=== PATIENT | male | born 1975 | race Hispanic/Latino ===

== ENCOUNTER 2017-08-14 16:39 | Emergency (ER) | payer OTHER, SELFPAY ==
[2017-08-14] MEDS ORDERED: HYDROCODONE/APAP 5/325 MG TAB ONE (17:16)
--- NOTE | 2017-08-14 17:49 | RAD REPORT ---
EXAM DESCRIPTION: RAD - Ankle Left 3 View -08/14/2017 5:41 pm CLINICAL HISTORY: Left ankle pain status post injury FINDINGS: No fracture or dislocation is seen. A radiopaque foreign body is not seen
--- NOTE | 2017-08-14 17:50 | EDPHYS ---
Physician Documentation [facility] Name: Colby Reyes Age: 41 yrs Sex: Male : 1975 Arrival Date: 08/14/2017 Time: 16:43 Bed 8 Private MD: None, None ED Physician Marquis Guthrie HPI: 08/14 17:10 This 41 yrs old Male presents to ER via Ambulatory with complaints of Stung by pm1 Sting ray. 17:10 The patient presents with pain, that is acute. The complaints affect the left foot. pm1 Context: [place] the patient can fully bear weight, the patient is able to ambulate. Onset: The symptoms/episode began/occurred yesterday. Modifying factors: The symptoms are alleviated by nothing, the symptoms are aggravated by nothing. Associated signs and symptoms: Pertinent positives: swelling, Pertinent negatives: calf tenderness, fever, numbness, tingling. Severity of symptoms: in the emergency department the symptoms are unchanged. The patient has not experienced similar symptoms in the past. The patient has not recently seen a physician. Patient did not see what possibly stung him. He was walking in the water yesterday and believes he was stung by a sting ray on the left lateral foot. he soaked his foot in water last night and reports some redness and swelling to wound. Patient reports tetanus immunization is current, less than 5 years old. . Historical: - Allergies: 17:02 No Known Allergies; mg2 - Home Meds: 17:02 None [Active]; mg2 - PMHx: 17:02 None; mg2 - PSHx: 17:02 None; mg2 - Immunization history:: Flu vaccine is not up to date. - Social history:: Smoking status: Patient uses tobacco products, smokes one-half pack cigarettes per day, Patient uses street drugs, Methamphetamine (Meth) occasionaly. - Ebola Screening: : No symptoms or risks identified at this time. ROS: 17:10 MS/extremity: Positive for puncture, of the lateral side of left foot below lateral pm1 malleolus , Negative for decreased range of motion, deformity. 17:10 Constitutional: Negative for fever, chills, and weight loss, Eyes: Negative for injury, pain, redness, and discharge, ENT: Negative for injury, pain, and discharge, Neck: Negative for injury, pain, and swelling, Cardiovascular: Negative for chest pain, palpitations, and edema, Respiratory: Negative for shortness of breath, cough, wheezing, and pleuritic chest pain, Abdomen/GI: Negative for abdominal pain, nausea, vomiting, diarrhea, and constipation, Back: Negative for injury and pain, Neuro: Negative for headache, weakness, numbness, tingling, and seizure. 17:10 Skin: Positive for laceration as noted on MS exam. Exam: 17:10 Constitutional: This is a well developed, well nourished patient who is awake, alert, pm1 and in no acute distress. Head/Face: Normocephalic, atraumatic. Eyes: Pupils equal round and reactive to light, extra-ocular motions intact. Lids and lashes normal. Conjunctiva and sclera are non-icteric and not injected. Cornea within normal limits. Periorbital areas with no swelling, redness, or edema. ENT: Nares patent. No nasal discharge, no septal abnormalities noted. Tympanic membranes are normal and external auditory canals are clear. Oropharynx with no redness, swelling, or masses, exudates, or evidence of obstruction, uvula midline. Mucous membranes moist. Neck: Trachea midline, no thyromegaly or masses palpated, and no cervical lymphadenopathy. Supple, full range of motion without nuchal rigidity, or vertebral point tenderness. No Meningismus. Chest/axilla: Normal chest wall appearance and motion. Nontender with no deformity. No lesions are appreciated. Cardiovascular: Regular rate and rhythm with a normal S1 and S2. No gallops, murmurs, or rubs. Normal PMI, no JVD. No pulse deficits. Respiratory: Lungs have equal breath sounds bilaterally, clear to auscultation and percussion. No rales, rhonchi or wheezes noted. No increased work of breathing, no retractions or nasal flaring. Abdomen/GI: Soft, non-tender, with normal bowel sounds. No distension or tympany. No guarding or rebound. No evidence of tenderness throughout. Back: No spinal tenderness. No costovertebral tenderness. Full range of motion. 17:10 Skin: Appearance: normal except for affected area, cellulitis, is not appreciated, mild swelling present surrounding wound. No erythema, injury, puncture(s), that are superficial, of the lateral aspect of left foot below malleolus , 0.5 cm length. Vital Signs: 17:03 BP 124 / 77; Pulse 98; Resp 18; Temp 98.7; Pulse Ox 100% on R/A; Weight 86.18 kg; mg2 Height 5 ft. 8 in. (172.72 cm); Pain 0/10; 17:03 Body Mass Index 28.89 (86.18 kg, 172.72 cm) mg2 MDM: 17:04 Patient medically screened. pm1 17:46 Data reviewed: vital signs. Data interpreted: Pulse oximetry: on room air is 100 %. pm1 Interpretation: normal. Counseling: I had a detailed discussion with the patient and/or guardian regarding: the historical points, exam findings, and any diagnostic results supporting the discharge/admit diagnosis, radiology results, the need for outpatient follow up, to return to the emergency department if symptoms worsen or persist or if there are any questions or concerns that arise at home. 17:50 ED course: Superficial puncture wound. No fever or erythema present. Will discharge pm1 home with doxycycline . 17:50 Special discussion: I discussed in detail with the patient the higher chance of wound pm1 infection based on his presenting history. 08/14 17:09 Order name: Ankle Left 3 View XRAY; Complete Time: 17:50 pm1 Administered Medications: 17:15 Drug: [place] 5 mg-325 mg 1 tabs Route: PO; mg2 18:11 Follow up: Response: No adverse reaction iw Disposition: 08/14/17 17:50 Discharged to Home. Impression: Puncture wound without foreign body, left foot. - Condition is Stable. - Discharge Instructions: Puncture Wound. - Prescriptions for Doxycycline Hyclate 100 mg Oral Tablet - take 1 tablet by ORAL route every 12 hours; 20 tablet. Tylenol- Codeine #3 300-30 mg Oral Tablet - take 2 tablets by ORAL route every 6 hours As needed; 20 tablet. - Medication Reconciliation Form, Thank You Letter, Antibiotic Education, Prescription Opioid Use form. - Follow up: Emergency Department; When: As needed; Reason: Worsening of condition. Follow up: Private Physician; When: 2 - 3 days; Reason: Recheck today's complaints, Continuance of care, Re-evaluation by your physician. - Problem is new. - Symptoms have improved. Addendum: 08/16/2017 09:22 Co-signature as Attending Physician, Marquis Guthrie MD I agree with the assessment and c santacruz plan of care. Signatures: Dispatcher [employer] EDPA Marquis Guthrie MD MD cha Williams, Irene, RN RN iw Pawel Batista NP GEOLOGIST PETROLEUM pm1 Lucian Smith, RN RN mg2 Corrections: (The following items were deleted from the chart) 08/14 18:11 17:50 08/14/2017 17:50 Discharged to Home. Impression: Puncture wound without foreign iw body, left foot. Condition is Stable. Forms are Medication Reconciliation Form, Thank You Letter, Antibiotic Education, Prescription Opioid Use. Follow up: Emergency Department; When: As needed; Reason: Worsening of condition. Follow up: Private Physician; When: 2 - 3 days; Reason: Recheck today's complaints, Continuance of care, Re-evaluation by your physician. Problem is new. Symptoms have improved. pm1
--- NOTE | 2017-08-14 17:50 | ER ---
Nurse's Notes [facility] Name: Colby Reyes Age: 41 yrs Sex: Male : 1975 Arrival Date: 08/14/2017 Time: 16:43 Bed 8 Private MD: None, None Diagnosis: Puncture wound without foreign body, left foot Presentation: 08/14 17:00 Presenting complaint: Patient states: he was stung by a stingray last night \T\ 11pm. he mg2 soaked his left foot on hot water and he was relieved. Now, he observed that his left ankle is red and a bit swollen. Transition of care: patient was not received from another setting of care. Onset of symptoms was August 13, 2017 at 23:00. Risk Assessment: Do you want to hurt yourself or someone else? Patient reports no desire to harm self or others. Initial Sepsis Screen: Does the patient meet any 2 criteria? No. Patient's initial sepsis screen is negative. Does the patient have a suspected source of infection? No. Patient's initial sepsis screen is negative. Care prior to arrival: None. 17:00 Method Of Arrival: Ambulatory mg2 17:00 Acuity: ZAIDA 4 mg2 Historical: - Allergies: 17:02 No Known Allergies; mg2 - Home Meds: 17:02 None [Active]; mg2 - PMHx: 17:02 None; mg2 - PSHx: 17:02 None; mg2 - Immunization history:: Flu vaccine is not up to date. - Social history:: Smoking status: Patient uses tobacco products, smokes one-half pack cigarettes per day, Patient uses street drugs, Methamphetamine (Meth) occasionaly. - Ebola Screening: : No symptoms or risks identified at this time. Screenin:04 Abuse screen: Denies threats or abuse. Denies injuries from another. Nutritional mg2 screening: No deficits noted. Tuberculosis screening: No symptoms or risk factors identified. Fall Risk None identified. Assessment: 17:04 General: Appears in no apparent distress. comfortable, Behavior is calm, cooperative. mg2 Pain: Denies pain. Neuro: Level of Consciousness is awake, alert, obeys commands, Oriented to person, place, time, situation. Cardiovascular: Capillary refill < 3 seconds Patient's skin is warm and dry. Respiratory: Airway is patent Respiratory effort is even, unlabored, Respiratory pattern is regular, symmetrical. GI: No signs and/or symptoms were reported involving the gastrointestinal system. : No signs and/or symptoms were reported regarding the genitourinary system. EENT: No signs and/or symptoms were reported regarding the EENT system. Derm: Skin is intact, Skin is red. Musculoskeletal: No signs and/or symptoms reported regarding the musculoskeletal system. Injury Description: redness and swelling in the left ankle. 18:00 Reassessment: Patient appears in no apparent distress at this time. Patient and/or iw family updated on plan of care and expected duration. Pain level reassessed. Patient is alert, oriented x 3, equal unlabored respirations, skin warm/dry/pink. Vital Signs: 17:03 BP 124 / 77; Pulse 98; Resp 18; Temp 98.7; Pulse Ox 100% on R/A; Weight 86.18 kg; mg2 Height 5 ft. 8 in. (172.72 cm); Pain 0/10; 17:03 Body Mass Index 28.89 (86.18 kg, 172.72 cm) mg2 ED Course: 16:43 Patient arrived in ED. mr 16:43 None, None is Private Physician. mr 16:57 Lucian Smith, IVAN is Primary Nurse. mg2 17:02 Triage completed. mg2 17:03 Pawel Batista, MAGALI is PHCP. pm1 17:03 Marquis Guthrie MD is Attending Physician. pm1 17:04 Arm band placed on. mg2 17:06 Patient has correct armband on for positive identification. mg2 17:38 Ankle Left 3 View XRAY In Process Unspecified. EDMS 17:39 X-ray completed. Portable x-ray completed in exam room. Patient tolerated procedure jw2 well. 18:11 No provider procedures requiring assistance completed. Patient did not have IV access iw during this emergency room visit. Administered Medications: 17:15 Drug: [place] 5 mg-325 mg 1 tabs Route: PO; mg2 18:11 Follow up: Response: No adverse reaction iw Outcome: 17:50 Discharge ordered by . pm1 18:11 Discharged to home ambulatory. iw 18:11 Condition: good 18:11 Discharge instructions given to patient, Instructed on discharge instructions, follow up and referral plans. medication usage, Demonstrated understanding of instructions, follow-up care, medications, Prescriptions given X 2. 18:11 Patient left the ED. iw Signatures: Dispatcher [employer] Loraine Fitzpatrick Irene, RN RN iw Pawel Batista, CARPET CLEANER CARPET CLEANER pm1 Christie Schwartz jw2 Lucian Smith, RN RN mg2
[2017-08-14] MEDS ORDERED: NA CHLORIDE 0.9% 1,000 ML ONE (18:18)
[2017-08-14] MEDS ORDERED: ONDANSETRON 4 MG/2 ML VIAL ONE (18:18)
[2017-08-14] MEDS ORDERED: FENTANYL CITR 100 MCG/2 ML ONE (18:18)
[2017-08-14] MEDS ORDERED: TETANUS & DIPHTHERIA TOX,ADULT 0.5 ML VIAL ONE (18:19)
[2017-08-14] MEDS ORDERED: CEFAZOLIN/SWI 1gm 2 GM/20 ML SYR ONE (18:20)
== END 2017-08-14 18:11 | disposition home or self-care (01) ==
LOC: ER 16:39
DX: S91.332A Puncture wound without foreign body, left foot, initial encounter (principal); Y93.01 Activity, walking, marching and hiking; Y92.832 Beach as the place of occurrence of the external cause; F17.210 Nicotine dependence, cigarettes, uncomplicated
CPT/HCPCS: 90714; 99283; J0690; J2405; J3010; J7030

== ENCOUNTER 2018-03-15 19:18 | Emergency (ER) | payer BC, OTHER ==
--- NOTE | 2018-03-15 19:52 | ER ---
Nurse's Notes [facility] Name: Colby Reyes Age: 42 yrs Sex: Male : 1975 Arrival Date: 03/15/2018 Time: 19:23 Bed 14 Private MD: Diagnosis: Malaise and fatigue Presentation: 03/15 19:25 Presenting complaint: Patient states: "I took off from work early today and my job aj wants me to have a note. I have been working every day and I was just feeling tired and weak.". Transition of care: patient was not received from another setting of care. Onset of symptoms was March 15, 2018. Risk Assessment: Do you want to hurt yourself or someone else? Patient reports no desire to harm self or others. Initial Sepsis Screen: Does the patient meet any 2 criteria? No. Patient's initial sepsis screen is negative. Does the patient have a suspected source of infection? No. Patient's initial sepsis screen is negative. Care prior to arrival: None. 19:25 Method Of Arrival: Ambulatory 19:25 Acuity: ZAIDA 5 Triage Assessment: 19:26 General: Appears in no apparent distress. comfortable, Behavior is calm, cooperative, aj appropriate for age. Pain: Denies pain. Neuro: Level of Consciousness is awake, alert, obeys commands, Oriented to person, place, time, situation, Appropriate for age. Respiratory: Airway is patent Respiratory effort is even, unlabored, Respiratory pattern is regular, symmetrical. Derm: Skin is intact, is healthy with good turgor, Skin is pink, warm \\T\\ dry. normal. Historical: - Allergies: 19:26 No Known Allergies; aj - Home Meds: 19:26 None [Active]; aj - PMHx: 19:26 None; aj - PSHx: 19:26 None; aj - Immunization history:: Adult Immunizations up to date. - Social history:: Smoking status: Patient uses tobacco products, smokes one pack cigarettes per day. - Ebola Screening: : Patient negative for fever greater than or equal to 101.5 degrees Fahrenheit, and additional compatible Ebola Virus Disease symptoms Patient denies exposure to infectious person Patient denies travel to an Ebola-affected area in the 21 days before illness onset No symptoms or risks identified at this time. Screenin:32 Abuse screen: Denies threats or abuse. Nutritional screening: No deficits noted. jb4 Tuberculosis screening: No symptoms or risk factors identified. Fall Risk None identified. Assessment: 19:32 General: Appears in no apparent distress. comfortable, Behavior is calm, cooperative, jb4 appropriate for age, Pt states "I have been working every day. I have been feeling weak and overall just bad. I took a day off and I just need a doctors excuse for work.". Pain: Denies pain. Neuro: Level of Consciousness is awake, alert, obeys commands, Oriented to person, place, time, situation. Cardiovascular: Patient's skin is warm and dry. Respiratory: Airway is patent Respiratory effort is even, unlabored, Respiratory pattern is regular, symmetrical. GI: No signs and/or symptoms were reported involving the gastrointestinal system. : No signs and/or symptoms were reported regarding the genitourinary system. EENT: No signs and/or symptoms were reported regarding the EENT system. Derm: Skin is intact, Skin is pink, warm \\T\\ dry. Musculoskeletal: Circulation, motion, and sensation intact. Vital Signs: 19:26 BP 127 / 84; Pulse 79; Resp 20; Temp 97.7; Pulse Ox 99% on R/A; Weight 95.25 kg; Height aj 5 ft. 8 in. (172.72 cm); 19:26 Body Mass Index 31.93 (95.25 kg, 172.72 cm) aj ED Course: 19:23 Patient arrived in ED. es 19:26 Triage completed. aj 19:26 Arm band placed on left wrist. Patient placed in an exam room. aj 19:27 Ariel Ríos RN is Primary Nurse. jb4 19:30 Ghazal Richard FNP-C is PHCP. kb 19:30 Marquis Guthrie MD is Attending Physician. kb 19:32 Patient has correct armband on for positive identification. Bed in low position. Call jb4 light in reach. Side rails up X 1. Pulse ox on. NIBP on. 20:16 No provider procedures requiring assistance completed. Patient did not have IV access jb4 during this emergency room visit. Administered Medications: No medications were administered Outcome: 19:51 Discharge ordered by . kb 20:16 Discharged to home ambulatory. jb4 20:16 Condition: stable 20:16 Discharge instructions given to patient, Instructed on discharge instructions, follow up and referral plans. Demonstrated understanding of instructions, follow-up care. 20:17 Patient left the ED. jb4 Signatures: Ghazal Richard, DAVI-Mayur TOMLINSON-Jen Lind, RN RN Osiris Mcgee James RN RN jb4
--- NOTE | 2018-03-15 19:52 | EDPHYS ---
Physician Documentation [facility] Name: Colby Reyes Age: 42 yrs Sex: Male : 1975 Arrival Date: 03/15/2018 Time: 19:23 Bed 14 Private MD: ED Physician Marquis Guthrie HPI: 03/15 19:49 This 42 yrs old Male presents to ER via Ambulatory with complaints of not kb feeling good. 19:49 Pt states he has been working a lot and moving to a new place so he has been tired. kb States he left work earlier because he needed a break and his job said he had to have a note to return. States he feels fine, has no complaints. . The patient has not experienced similar symptoms in the past. The patient has not recently seen a physician. Historical: - Allergies: 19:26 No Known Allergies; aj - Home Meds: 19:26 None [Active]; aj - PMHx: 19:26 None; aj - PSHx: 19:26 None; aj - Immunization history:: Adult Immunizations up to date. - Social history:: Smoking status: Patient uses tobacco products, smokes one pack cigarettes per day. - Ebola Screening: : Patient negative for fever greater than or equal to 101.5 degrees Fahrenheit, and additional compatible Ebola Virus Disease symptoms Patient denies exposure to infectious person Patient denies travel to an Ebola-affected area in the 21 days before illness onset No symptoms or risks identified at this time. ROS: 19:49 Constitutional: Negative for fever, chills, and weight loss, ENT: Negative for injury, kb pain, and discharge, Neck: Negative for injury, pain, and swelling, Cardiovascular: Negative for chest pain, palpitations, and edema, Respiratory: Negative for shortness of breath, cough, wheezing, and pleuritic chest pain, Abdomen/GI: Negative for abdominal pain, nausea, vomiting, diarrhea, and constipation, MS/Extremity: Negative for injury and deformity, Skin: Negative for injury, rash, and discoloration, Neuro: Negative for headache, weakness, numbness, tingling, and seizure. Exam: 19:49 Constitutional: This is a well developed, well nourished patient who is awake, alert, kb and in no acute distress. Head/Face: Normocephalic, atraumatic. ENT: Nares patent. No nasal discharge, no septal abnormalities noted. Tympanic membranes are normal and external auditory canals are clear. Oropharynx with no redness, swelling, or masses, exudates, or evidence of obstruction, uvula midline. Mucous membranes moist. Neck: Trachea midline, no thyromegaly or masses palpated, and no cervical lymphadenopathy. Supple, full range of motion without nuchal rigidity, or vertebral point tenderness. No Meningismus. Chest/axilla: Normal chest wall appearance and motion. Nontender with no deformity. No lesions are appreciated. Cardiovascular: Regular rate and rhythm with a normal S1 and S2. No gallops, murmurs, or rubs. Normal PMI, no JVD. No pulse deficits. Respiratory: Lungs have equal breath sounds bilaterally, clear to auscultation and percussion. No rales, rhonchi or wheezes noted. No increased work of breathing, no retractions or nasal flaring. Abdomen/GI: Soft, non-tender, with normal bowel sounds. No distension or tympany. No guarding or rebound. No evidence of tenderness throughout. Skin: Warm, dry with normal turgor. Normal color with no rashes, no lesions, and no evidence of cellulitis. MS/ Extremity: Pulses equal, no cyanosis. Neurovascular intact. Full, normal range of motion. Neuro: Awake and alert, GCS 15, oriented to person, place, time, and situation. Cranial nerves II-XII grossly intact. Motor strength 5/5 in all extremities. Sensory grossly intact. Cerebellar exam normal. Normal gait. Vital Signs: 19:26 BP 127 / 84; Pulse 79; Resp 20; Temp 97.7; Pulse Ox 99% on R/A; Weight 95.25 kg; Height aj 5 ft. 8 in. (172.72 cm); 19:26 Body Mass Index 31.93 (95.25 kg, 172.72 cm) aj MDM: 19:30 Patient medically screened. kb 19:49 Data reviewed: vital signs, nurses notes. Data interpreted: Pulse oximetry: on room air kb is 99 %. Interpretation: normal. Counseling: I had a detailed discussion with the patient and/or guardian regarding: the historical points, exam findings, and any diagnostic results supporting the discharge/admit diagnosis, the need for outpatient follow up, a family practitioner, to return to the emergency department if symptoms worsen or persist or if there are any questions or concerns that arise at home. Administered Medications: No medications were administered Disposition: 03/16 12:00 Co-signature as Attending Physician, Marquis Guthrie MD I agree with the assessment and jovany plan of care. Disposition: 03/15/18 19:51 Discharged to Home. Impression: Malaise and fatigue. - Condition is Stable. - Discharge Instructions: Fatigue. - Work release form, Medication Reconciliation Form, Thank You Letter, Antibiotic Education, Prescription Opioid Use form. - Follow up: Emergency Department; When: As needed; Reason: Worsening of condition. Follow up: Private Physician; When: 2 - 3 days; Reason: Recheck today's complaints, Continuance of care, Re-evaluation by your physician. Signatures: Ghazal Richard, ANIMAL MAINTENANCE SUPERVISOR-C ANIMAL MAINTENANCE SUPERVISOR-Jen Lind, RN Marquis Monique MD MD cha Bryson, James RN RN jb4 Corrections: (The following items were deleted from the chart) 03/15 20:17 19:51 03/15/2018 19:51 Discharged to Home. Impression: Malaise and fatigue. Condition jb4 is Stable. Forms are Medication Reconciliation Form, Thank You Letter, Antibiotic Education, Prescription Opioid Use. Follow up: Emergency Department; When: As needed; Reason: Worsening of condition. Follow up: Private Physician; When: 2 - 3 days; Reason: Recheck today's complaints, Continuance of care, Re-evaluation by your physician. kb
== END 2018-03-15 20:17 | disposition home or self-care (01) ==
LOC: ER 19:18
DX: R53.83 Other fatigue (principal); R53.81 Other malaise; F17.210 Nicotine dependence, cigarettes, uncomplicated
CPT/HCPCS: 99283

== ENCOUNTER 2018-05-11 03:35 | Emergency (ER) | payer BC ==
--- NOTE | 2018-05-11 06:07 | ER ---
Nurse's Notes [facility] Name: Colby Reyes Age: 42 yrs Sex: Male : 1975 Arrival Date: 05/11/2018 Time: 03:49 Bed 20 Private MD: Diagnosis: Presentation: 05/11 03:57 Presenting complaint: Patient states: golfball sized abscess on left buttock. No tl2 drainage reported. Transition of care: patient was not received from another setting of care. Onset of symptoms was May 09, 2018. Risk Assessment: Do you want to hurt yourself or someone else? Patient reports no desire to harm self or others. Initial Sepsis Screen: Does the patient meet any 2 criteria? No. Patient's initial sepsis screen is negative. Does the patient have a suspected source of infection? No. Patient's initial sepsis screen is negative. Care prior to arrival: None. 03:57 Method Of Arrival: Ambulatory tl2 03:57 Acuity: ZAIDA 4 tl2 Triage Assessment: 03:59 General: Appears in no apparent distress. uncomfortable, Behavior is calm, cooperative, tl2 appropriate for age. Pain: Complains of pain in left gluteus lisa. Neuro: Level of Consciousness is awake, alert, obeys commands, Oriented to person, place, time, situation. Cardiovascular: Denies chest pain. Respiratory: Airway is patent Respiratory effort is even, unlabored, Respiratory pattern is regular, symmetrical. GI: No signs and/or symptoms were reported involving the gastrointestinal system. : No signs and/or symptoms were reported regarding the genitourinary system. Derm: Skin is pink, warm \T\ dry. Abscess located on left gluteus lisa is golf ball sized, has no drainage, is red, is raised. Historical: - Allergies: 03:59 No Known Allergies; tl2 - Home Meds: 03:59 None [Active]; tl2 - PMHx: 03:59 None; tl2 - PSHx: 03:59 None; tl2 - Immunization history:: Adult Immunizations up to date. - Social history:: Smoking status: Patient uses tobacco products, smokes one-half pack cigarettes per day. - Ebola Screening: : No symptoms or risks identified at this time. Screenin:05 Abuse screen: Denies threats or abuse. Nutritional screening: No deficits noted. tl2 Tuberculosis screening: No symptoms or risk factors identified. Fall Risk None identified. Assessment: 03:59 General: see triage assessment. tl2 05:30 Reassessment: pt left to go get insurance card and did not return to room. Attempted to tl2 contact pt but did not get answer. Vital Signs: 03:59 BP 138 / 90; Pulse 94; Resp 18; Temp 98.1(O); Pulse Ox 96% on R/A; Weight 86.18 kg; tl2 Height 5 ft. 8 in. (172.72 cm); Pain 3/10; 03:59 Body Mass Index 28.89 (86.18 kg, 172.72 cm) tl2 ED Course: 03:49 Patient arrived in ED. am2 03:57 Daniella Olmedo RN is Primary Nurse. tl2 03:58 Triage completed. tl2 03:59 Arm band placed on right wrist. tl2 04:00 No provider procedures requiring assistance completed. Patient did not have IV access tl2 during this emergency room visit. 04:05 Patient has correct armband on for positive identification. Placed in gown. Bed in low tl2 position. Call light in reach. 04:07 Jose Rothman MD is Attending Physician. tw4 Administered Medications: No medications were administered Outcome: 06:08 Eloped from patient exam room, after seeing physician Time discovered patient gone: tl2 May 11, 2018 at 05:30 06:08 Condition: stable 06:08 Following a medical screening exam, the patient was provided information regarding alternative care sites and resources available per registration personnel. 06:09 Patient left the ED. tl2 Signatures: Daniella Olmedo RN RN 2 Jen Lind 2 Jose Rothman MD MD tw4
--- NOTE | 2018-05-12 06:19 | EDPHYS ---
Physician Documentation [facility] Name: Colby Reyes Age: 42 yrs Sex: Male : 1975 Arrival Date: 05/11/2018 Time: 03:49 Bed 20 Private MD: ED Physician Jose Rothman HPI: 05/11 07:01 This 42 yrs old Male presents to ER via Ambulatory with complaints of Rash - tw4 left buttock. 07:01 the patient presents with a swollen area of the left lower back. Description: The tw4 affected area is small, well demarcated, erythematous, fluctuant. Onset: The symptoms/episode began/occurred 3 day(s) ago. Possible cause(s): unknown. Associated signs and symptoms: The patient has no apparent associated signs or symptoms. Severity of symptoms: At their worst the symptoms were moderate, in the emergency department the symptoms are unchanged. The patient has not experienced similar symptoms in the past. Historical: - Allergies: 03:59 No Known Allergies; tl2 - Home Meds: 03:59 None [Active]; tl2 - PMHx: 03:59 None; tl2 - PSHx: 03:59 None; tl2 - Immunization history:: Adult Immunizations up to date. - Social history:: Smoking status: Patient uses tobacco products, smokes one-half pack cigarettes per day. - Ebola Screening: : No symptoms or risks identified at this time. ROS: 07:01 Constitutional: Negative for fever, chills, and weight loss, Cardiovascular: Negative tw4 for chest pain, palpitations, and edema, Respiratory: Negative for shortness of breath, cough, wheezing, and pleuritic chest pain, Abdomen/GI: Negative for abdominal pain, nausea, vomiting, diarrhea, and constipation, Back: Negative for injury and pain. 07:01 Skin: Positive for abscess, rash. Exam: 07:01 Constitutional: This is a well developed, well nourished patient who is awake, alert, tw4 and in no acute distress. Head/Face: Normocephalic, atraumatic. Chest/axilla: Normal chest wall appearance and motion. Nontender with no deformity. No lesions are appreciated. Cardiovascular: Regular rate and rhythm with a normal S1 and S2. No gallops, murmurs, or rubs. Normal PMI, no JVD. No pulse deficits. Respiratory: Lungs have equal breath sounds bilaterally, clear to auscultation and percussion. No rales, rhonchi or wheezes noted. No increased work of breathing, no retractions or nasal flaring. 07:01 Skin: Appearance: normal except for affected area. Vital Signs: 03:59 BP 138 / 90; Pulse 94; Resp 18; Temp 98.1(O); Pulse Ox 96% on R/A; Weight 86.18 kg; tl2 Height 5 ft. 8 in. (172.72 cm); Pain 3/10; 03:59 Body Mass Index 28.89 (86.18 kg, 172.72 cm) tl2 MDM: 04:07 Patient medically screened. tw4 07:01 Differential diagnosis: abscess, allergic reaction, cellulitis, insect bite. Data tw4 reviewed: vital signs, nurses notes. Medical screen evaluation completed. EMTALA emergency medical condition absent. Administered Medications: No medications were administered Disposition: 05/11/18 06:07 Patient left the facility after being seen by provider. - Patient left due to feeling better. - Condition is Stable. - Problem is new. - Symptoms are unchanged. Signatures: Daniella Olmedo RN RN tl2 Jose Rothman MD MD tw4 Corrections: (The following items were deleted from the chart) 06:09 06:07 05/11/2018 06:07 Patient left the facility after being seen by provider. Reason tl2 stated they are leaving due to feeling better. Condition is Stable. Problem is new. Symptoms are unchanged. tl2
== END 2018-05-11 06:09 | disposition left against medical advice (07) ==
LOC: ER 03:35
DX: R21 Rash and other nonspecific skin eruption (principal); F17.210 Nicotine dependence, cigarettes, uncomplicated; Z53.29 Procedure and treatment not carried out because of patient's decision for other reasons
CPT/HCPCS: 99281

== ENCOUNTER 2020-10-13 13:22 | Emergency (ER) | payer SELFPAY ==
--- NOTE | 2020-10-13 18:06 | EDPHYS ---
Physician Documentation [facility] Name: Colby Reyes Age: 44 yrs Sex: Male : 1975 Arrival Date: 10/13/2020 Time: 13:24 Bed Waiting Private MD: ED Physician Georgina Peñaloza HPI: 10/13 18:00 This 44 yrs old Male presents to ER via Ambulatory with complaints of Body cp Aches,Covid Test. 18:00 The patient or guardian reports flu symptoms, myalgias. cp 18:00 Onset: The symptoms/episode began/occurred 3-4 days. Associated signs and symptoms: cp Pertinent negatives: diarrhea, fever, sore throat, vomiting, cough. Severity of symptoms: in the emergency department the symptoms are unchanged despite home interventions. Historical: - Allergies: 14:51 No Known Allergies; aa5 - PMHx: 14:51 None; aa5 - Immunization history:: Client reports receiving the 1st dose of the Covid vaccine. - Social history:: Smoking status: Patient reports the use of cigarette tobacco products, denies chronic smoking, but will smoke occasionally. ROS: 18:02 Eyes: Negative for injury, pain, redness, and discharge. cp 18:02 Constitutional: Positive for body aches, chills, Negative for fever. 18:02 ENT: Negative for drainage from ear(s), ear pain, sore throat, difficulty swallowing, difficulty handling secretions. 18:02 Cardiovascular: Negative for chest pain, palpitations. 18:02 Respiratory: Negative for cough, shortness of breath, wheezing. 18:02 Abdomen/GI: Negative for abdominal pain, nausea, vomiting, and diarrhea. 18:02 Neuro: Negative for altered mental status, headache, weakness. 18:02 All other systems are negative. Exam: 18:03 Head/Face: Normocephalic, atraumatic. cp 18:03 Constitutional: The patient appears in no acute distress, alert, awake, non-toxic, well developed, well nourished. 18:03 Eyes: Periorbital structures: appear normal, Conjunctiva: normal, no exudate, no injection, Lids and lashes: appear normal, bilaterally. 18:03 ENT: External ear(s): are unremarkable, Nose: is normal, Posterior pharynx: Airway: no evidence of obstruction, patent. 18:03 Chest/axilla: Inspection: normal. 18:03 Cardiovascular: Rate: normal. 18:03 Respiratory: the patient does not display signs of respiratory distress, Respirations: normal, no use of accessory muscles, no retractions, labored breathing, is not present, Breath sounds: are clear throughout, no decreased breath sounds, no stridor, no wheezing. 18:03 Abdomen/GI: Exam negative for discomfort, distension, guarding, Inspection: abdomen appears normal. Vital Signs: 14:51 Pulse 89; Resp 20 S; Temp 97.1(TE); Pulse Ox 100% on R/A; Weight 95.25 kg (R); Height 5 aa5 ft. 7 in. (170.18 cm) (R); 14:52 BP 135 / 98; aa5 14:51 Body Mass Index 32.89 (95.25 kg, 170.18 cm) aa5 MDM: 18:04 Differential diagnosis: bronchitis, flu, URI, COVID-19. Antibiotic administration: Not cp indicated, the patient has a suspected viral illness. Data reviewed: vital signs, nurses notes, lab test result(s), and as a result, I will discharge patient. 18:05 Patient medically screened. cp 10/13 16:31 Order name: CORONAVIRUS EDOR 10/13 17:49 Order name: SARS-COV-2 RT PCR; Complete Time: 17:55 EDOR 10/13 17:55 Interpretation: Results reviewed. cp Administered Medications: No medications were administered Disposition Summary: 10/13/20 18:05 Discharge Ordered Location: Home cp Problem: new cp Symptoms: are unchanged cp Condition: Stable cp Diagnosis - SARS-associated coronavirus as the cause of diseases classified elsewhere cp Followup: cp - With: Private Physician - When: 2 - 3 days - Reason: Worsening of condition Discharge Instructions: - Discharge Summary Sheet cp - Form - Excuse from Work, School, or Physical Activity cp - COVID-19 cp - Things to Know about the COVID-19 Pandemic - [facility] cp - 10 Things You Can Do to Manage Your COVID-19 Symptoms at Home - [facility] cp - COVID-19: Quarantine vs. Isolation - [facility] cp - Prevent the Spread of COVID-19 if You Are Sick - [facility] cp Forms: - Medication Reconciliation Form cp - Thank You Letter cp - Antibiotic Education cp - Prescription Opioid Use cp Addendum: 10/15/2020 08:58 Co-signature as Attending Physician, Georgina Peñaloza MD I agree with the assessment and s p3 plan of care. Signatures: Dispatcher [employer] Gianna Tompkins, RN RN aa5 Marquis Mcmullen PA PA Georgina Weiss MD MD sp3
--- NOTE | 2020-10-13 18:06 | ER ---
Nurse's Notes [facility] Name: Colby Reyes Age: 44 yrs Sex: Male : 1975 Arrival Date: 10/13/2020 Time: 13:24 Bed Waiting Private MD: Diagnosis: SARS-associated coronavirus as the cause of diseases classified elsewhere Presentation: 10/13 14:50 Chief complaint: Patient states: "my niece has covid and she lives with me so I need to aa5 be tested". Pt reports body aches. Pt denies cough/vomiting. Coronavirus screen: muscle pain. Ebola Screen: Patient negative for fever greater than or equal to 101.5 degrees Fahrenheit, and additional compatible Ebola Virus Disease symptoms. Initial Sepsis Screen: Does the patient meet any 2 criteria? No. Patient's initial sepsis screen is negative. Does the patient have a suspected source of infection? No. Patient's initial sepsis screen is negative. Risk Assessment: Do you want to hurt yourself or someone else? Patient reports no desire to harm self or others. Onset of symptoms was October 2020. 14:50 Method Of Arrival: Ambulatory aa5 14:50 Acuity: ZAIDA 4 aa5 Historical: - Allergies: 14:51 No Known Allergies; aa5 - PMHx: 14:51 None; aa5 - Immunization history:: Client reports receiving the 1st dose of the Covid vaccine. - Social history:: Smoking status: Patient reports the use of cigarette tobacco products, denies chronic smoking, but will smoke occasionally. Vital Signs: 14:51 Pulse 89; Resp 20 S; Temp 97.1(TE); Pulse Ox 100% on R/A; Weight 95.25 kg (R); Height 5 aa5 ft. 7 in. (170.18 cm) (R); 14:52 BP 135 / 98; aa5 14:51 Body Mass Index 32.89 (95.25 kg, 170.18 cm) aa5 ED Course: 13:24 Patient arrived in ED. mr 14:50 Arm band placed on. aa5 14:51 Triage completed. aa5 15:16 Marquis Mcmullen PA is PHCP. cp 15:16 Georgina Peñaloza MD is Attending Physician. cp 18:10 No provider procedures requiring assistance completed. Patient did not have IV access aa5 during this emergency room visit. Administered Medications: No medications were administered Outcome: 18:05 Discharge ordered by . enrique 18:10 Discharged to home ambulatory. aa5 18:10 Condition: stable 18:10 Discharge instructions given to patient, Instructed on discharge instructions, follow up and referral plans. Demonstrated understanding of instructions, follow-up care. 18:10 Patient left the ED. aa5 Signatures: Kyra Owens mr RiderGianna moulton RN RN aa5 Marquis Mcmullen PA PA cp
== END 2020-10-13 18:10 | disposition home or self-care (01) ==
LOC: ER 13:22
DX: U07.1 COVID-19 (principal)
CPT/HCPCS: 99281; U0003